=== PATIENT | male | born 1970 | race Caucasian/White ===

== ENCOUNTER 2018-10-23 15:01 | Emergency (ER) | payer MEDICARE, MEDICAID ==
[~2018-10-23] VITALS: Ht 177.8 cm; Wt 81.6 kg
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
[2018-10-23] MEDS ORDERED: HYDROcodone/APAP 7.5 MG/325 MG (LORTAB, LORCET PLUS) TABLET PO ONE (15:45)
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
[2018-10-23] MEDS ORDERED: LORazepam 0.5 MG (ATIVAN) TABLET PO ONE (17:15)
--- NOTE | 2018-10-23 17:38 | Diagnostic Imaging Report ---
PROCEDURE: CT right upper extremity without contrast. TECHNIQUE: Multiple contiguous axial images were obtained through the right upper extremity without the use of intravenous contrast. Sagittal and coronal reformations were then performed. INDICATION: Fall. Wrist injury. Abnormal wrist radiographs. COMPARISON: Wrist radiographs from earlier same day. FINDINGS: Multiple chronic deformities to the left wrist are identified. There is chronic appearing fragmentation of the scaphoid. 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 Multiple small bony fragments are noted about the scaphoid. There is area of dense sclerosis within the capitate. This is most likely on the basis of benign bone island. No other convincing acute osseous abnormalities of the right wrist are identified. Multiple degenerative bone cysts are present involving the carpals. Distal radius and ulna are intact and show no evidence of acute fracture. There is mild osteoarthritis to the distal radius as well. Included portions of the metacarpals are intact. No unexpected radiopaque foreign bodies are seen. IMPRESSION: 1. Chronic appearing deformity of the scaphoid with multiple non-unified fracture fragments. 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 2. Probable benign bone island within the capitate. 3. 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 4. No convincing acute fracture or dislocation of the right wrist. Dictated by: Dictated on workstation # [id number]
[2018-10-23 18:00] VITALS: BP 129/75
[2018-10-23] MEDS ORDERED: ACHD5005 PO (18:05)
== END 2018-10-23 18:00 | disposition home or self-care (01) ==
LOC: EDUNIT# 15:01 → ER 15:03
DX: S63.501A Unspecified sprain of right wrist, initial encounter (principal); V18.4XXA Pedal cycle driver injured in noncollision transport accident in traffic accident, initial encounter; Y92.410 Unspecified street and highway as the place of occurrence of the external cause
CPT/HCPCS: 73080; 73110; 73200

== ENCOUNTER 2022-07-26 09:49 | Emergency (ER) | payer MEDICAID, MEDICARE ==
[~2022-07-26] VITALS: Ht 175 cm; Wt 90.7 kg
[~2022-07-26 09:49] MED LIST: ACHD5005 PO
[2022-07-26 10:00] VITALS: BP 163/92
--- NOTE | 2022-07-26 10:43 | ED Lower Extremity ---
General Chief Complaint: Hip/Pelvic Problems Stated Complaint: RT HIP PAIN | LEGS SWELLING Nursing Triage Note: ARRIVED VIA AMB WITH COMPLAINTS OF RIGHT HIP PAIN AND BILAT LOWER LEG EDEMA. HAS NOT TAKEN ANYTHING FOR THE PAIN. Source: patient Exam Limitations: no limitations History of Present Illness Date Seen by Provider: Jul 26, 2022 Time Seen by Provider: 10:25 Initial Comments Patient is a 51yo male to the ER with a complaint of Right hip pain and lower leg edema. Onset over the last week. No trauma reported. He has not had a blood clot in the past. He has had a wound to his right great toe over the last couple of week. Moderated painful. He attributes to his job and being up on his feet all the time. HIs socks irritate it. No recent travel/prolonged immobility. No fever, chills. No shortness of breath or chest pain. He states the majority of his swelling is in the fron of the right lower leg. Pain in his hips is worse with movement. All other ROS reviwewed and neg. Onset: yesterday Severity: moderate Pain/Injury Location: right hip, right leg Method of Injury: unknown Allergies and Home Medications Allergies Coded Allergies: No Known Drug Allergies (Unverified , 10/23/18) Patient Home Medication List Home Medication List Reviewed: Yes Doxycycline Hyclate (Doxycycline Hyclate) 100 Mg Tablet, 100 MG PO BID Prescribed by: IRIS PEPPER on 07/26/22 1044 Hydrocodone Bit/Acetaminophen (Lortab 5 Mg Tablet) 1 Tab Tab, 1-2 EACH PO Q6H PRN for PAIN-MODERATE Prescribed by: DEANDRA HENRIQUEZ on 10/23/18 1805 Review of Systems Constitutional: see HPI Respiratory: no symptoms reported Cardiovascular: no symptoms reported Gastrointestinal: no symptoms reported Musculoskeletal: joint pain (right hip) Skin: other (wounds to right great toe, heel) All Other Systems Reviewed Negative Unless Noted: Yes Past Qsiulro-Eniyoe-Bxyuaw Hx Patient Social History Tobacco Use?: Yes Smoking Status: Current Everyday Smoker Substance use?: No Alcohol Use?: No Physical Exam Vital Signs Vital Signs - First Documented 07/26/22 10:00 Temp 35.9 Pulse 92 Resp 16 B/P (MAP) 163/92 (115) Pulse Ox 99 O2 Delivery Room Air Capillary Refill : Less Than 3 Seconds Height, Weight, BMI Height: 5'10.00" Weight: 180lbs. oz. 81.210962li; 29.00 BMI Method:Stated General Appearance: WD/WN, no apparent distress, other (agitated, appears to be on a stimulant) HEENT: PERRL/EOMI Cardiovascular: regular rate, rhythm Respiratory: no respiratory distress, no accessory muscle use Gastrointestinal: non tender, soft Back: no CVA tenderness Hips: bilateral hip normal inspection, bilateral hip normal range of motion, bilateral hip no evidence of injury Legs: bilateral leg normal inspection, bilateral leg normal range of motion, bilateral leg no evidence of injury; right leg swelling (right anterior distal shepard) Knees: bilateral knee non-tender, bilateral knee normal inspection, bilateral knee normal range of motion, bilateral knee no evidence of injury Ankles: bilateral ankle non-tender, bilateral ankle normal inspection, bilateral ankle normal range of motion, bilateral ankle no evidence of injury; right ankle swelling (mild) Feet: right foot other (scabbed lesions to right great toe - with dried blood; clubbing to all digits. all toes erythematous and edematous; erythema extends slightly up into te anterior ankle) Neurologic/Tendon: normal sensation, normal motor functions, normal tendon functions Neurologic/Psychiatric: alert, normal mood/affect, oriented x 3 Skin: normal color, warm/dry, other (as above) Progress/Results/Core Measures Results/Orders Lab Results Laboratory Tests Test 07/26/22 10:54 Range/Units Glucometer 121 H 70-110 MG/DL My Orders Orders - IRIS PEPPER MD Accucheck Stat ONCE (07/26/22 10:28) Vital Signs/I&O 07/26/22 10:00 Temp 35.9 Pulse 92 Resp 16 B/P (MAP) 163/92 (115) Pulse Ox 99 O2 Delivery Room Air Blood Pressure Mean: 115 Progress Progress Note : Time: 10:40 Progress Note Patient seen and evaluated. Complains of swelling to right leg - anterior. Evaluation includes physical exam and accu check. Patient has no calf pain, cords or Evon's on the right. He has cellulitic changes to the right foot and toes, suspect edema is due to cellulitis. Crusted lesions to the great toe ri ght foot. FROM to all joints of the RLE. WIll start him on doxycycline to cover MRSA. recommend triple antibiotic ointment to right great toe twice a day for 5 days. Encouraged to [facility]. Departure Impression Primary Impression: Cellulitis of right foot Additional Impression: Open wound of right great toe Qualified Codes: S91.101A - Unspecified open wound of right great toe without damage to nail, initial encounter Disposition: 01 HOME, SELF-CARE Condition: Stable Departure-Patient Inst. Decision time for Depature: 10:43 Referrals: [facility]DA[facility] PH[facility]IC[facility] (PCP) Primary Care Physician Patient Instructions: Cellulitis (Skin Infection), Adult (DC) Add. Discharge Instructions: Elevate the right leg to keep the swelling down. Put triple antibiotic ointment on the wounds to your toes, twice a day for 5 days. Keep the wounds clean, dry and covered to prevent irritation and further infection. Take the antibiotics twice a day for 10 days. If you have worsening swelling, redness, fever or other emergent, concerning symptoms, please come back to the ER for re-evaluation. Follow up with [facility] for further management of health issues. Scripts Doxycycline Hyclate (Doxycycline Hyclate) 100 Mg Tablet 100 MG PO BID, #20 TAB Prov: IRIS PEPPER MD 07/26/22 IRIS PEPPER MD Jul 26, 2022 10:43
[2022-07-26] MEDS ORDERED: DOXY100T2 PO (10:44)
== END 2022-07-26 10:54 | disposition home or self-care (01) ==
LOC: EDUNIT# 09:49 → ER 09:52
DX: S91.101A Unspecified open wound of right great toe without damage to nail, initial encounter (principal); L03.115 Cellulitis of right lower limb; F17.200 Nicotine dependence, unspecified, uncomplicated; Z28.310 Unvaccinated for COVID-19; X58.XXXA Exposure to other specified factors, initial encounter
CPT/HCPCS: 82947